=== PATIENT | female | born 1980 | race Caucasian/White ===

== ENCOUNTER 2022-12-28 20:22 | Emergency (ER) | payer MEDICAID, OTHER ==
[~2022-12-28] VITALS: Ht 160 cm; Wt 81.8 kg
[2022-12-28] MEDS ORDERED: KETOROLAC TROMETH 60MG/2ML VIAL IM ONE (23:45)
[2022-12-28] MEDS ORDERED: HYDROcodone-ACET 5/325MG TAB PO ONE (23:45)
[2022-12-28] MEDS ORDERED: ONDANSETRON ODT 4 MG TAB PO ONE (23:45)
[2022-12-28] MEDS ORDERED: HYDR-4902 PO (23:50)
[2022-12-28] MEDS ORDERED: ZOFR4T PO (23:50)
[2022-12-29 00:06] VITALS: BP 142/85; PULSE 78; RESP 17; TEMP 97.7; O2SAT 99
== END 2022-12-29 00:24 | disposition home or self-care (01) ==
LOC: ER 20:22
DX: S02.2XXA Fracture of nasal bones, initial encounter for closed fracture (principal); S06.0X0A Concussion without loss of consciousness, initial encounter; Y04.8XXA Assault by other bodily force, initial encounter; Y93.89 Activity, other specified; Y92.89 Other specified places as the place of occurrence of the external cause; Y99.8 Other external cause status
CPT/HCPCS: 70450; 70486; 96372; 99285; J1885; Q0162